=== PATIENT | female | born 2000 | race African-American/Black ===

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

== ENCOUNTER 2019-02-25 13:36 | Emergency (ER) | payer MEDICAID, SELFPAY ==
[2019-02-25] VITALS (10 sets, daily range): BP systolic 108–110; BP diastolic 64–81; PULSE 76–81; RESP 14–16; TEMP 37.6; O2SAT 16–99; BMI 18.1; BMI 18.7
[2019-02-25 14:42] LABS: Absolute Neutrophil Count 5.6 X10^3/uL (2.0-7.7); Basophil# 0.02 X10^3/uL; Basophil% 0.2 % (0-1); Eosinophil# 0.01 X10^3/uL; Eosinophils% 0.1 % (0-5); Hematocrit 43.9 % (37-47); Lymphocyte % 27.6 % (19-41); Mean Corp Hgb Conc 34.2 g/dL (32-36); Mean Corpuscular Volume 96.5 fL (81-99); Mean Platelet Vol. 9.5 fl (6.2-12.0); Monocyte% 4.8 % (0-10); NRBC Flagged by Analyzer 0 % (0-5); Neutrophil # 5.58 X10^3/uL (2.7-7.7); Neutrophil % 67.2 % (47-70); Platelet Count 214 K/mm3 (150-450); RBC Distribution Width CV 11.3 % (11.6-14.6); RBC Distribution Width SD 40.2 fl (35.1-43.9); Red Blood Count 4.55 M/mm3 (4.2-5.4); White Blood Count 8.3 K/mm3 (4.4-11.0)
--- NOTE | 2019-02-25 14:42 | ED.VISSUMM ---
- ER Visit Summary Date of Service: 02/25/19 Chief Complaint: Suicidal ideation History of Present Illness: The patient is a 18 F with suicidal ideation. History is limited, as she will not speak to me very much. She denies any plan or attempt. She denies any history of suicidal attempts or ideation. She is not on medication. Denies any medical history or complaints. Physical Examination: Afebrile and vital signs are unremarkable. Alert. Depressed mood and flat affect. Head and neck atraumatic. Heart regular. No respiratory distress. Moves all extremities. Normal gait. Test Results: Labs?CBC, CMP, hCG, tox, alcohol pending Emergency Department Course and Treatment: Patient had suicide precautions. [place] slip completed by me. Pending an unremarkable work-up, the patient is medically cleared for transfer and admission at a psychiatric facility. Treatment Plan: As above Disposition: Pending crisis evaluation Impression: 1. Suicidal ideation This note was generated with [employer] dictation software. It may contain incorrect words, spelling, and punctuation that were not noted in review of the chart prior to signing ED Disposition - Plan for ED Patient: Referrals: Dontae Worthington MD [Primary Care Provider] -
[2019-02-25 15:00] LABS: Albumin, Serum 4.6 g/dL (3.2-5.0); BUN 9 mg/dL (7-18); BUN/Creat Ratio 11.5 RATIO (10-20); Creatinine, Serum 0.78 mg/dL (0.55-1.02); EST Glomerular Filtration Rate 100 mL/min (>60); Est Glom Filt Rate - Afr Amer 121 mL/min (>60); Globulin 3.5 g/dL (2.2-4.2); Glucose 70 mg/dL (74-106); Protein, Total 8.1 g/dL (6.4-8.2)
[2019-02-25 15:01] LABS: ALB/GLOB Ratio 1.3 RATIO (0.9-2.4); AST(SGOT) 15 U/L (15-37); Alanine Aminotransfer ALT/SGPT 14 U/L (13-56); Alkaline Phosphatase 56 U/L (45-117); Anion Gap 8 (5-15); Calcium,Total 9.2 mg/dL (8.5-10.1); Chloride 109 mmol/L (98-107); Potassium 3.4 mmol/L (3.5-5.1); Sodium Level 141 mmol/L (136-145)
[2019-02-25 15:02] LABS: Amphetamine Urine VISTA NEGATIVE (<1000 ng/mL); Barbiturate Urine VISTA NEGATIVE (< 200 ng/mL); Benzodiazepine Urine VISTA NEGATIVE (< 200 ng/mL); Cocaine Urine VISTA NEGATIVE (< 300 ng/mL); Ecstacy Urine VISTA NEGATIVE (< 500 ng/mL); Methadone Urine VISTA NEGATIVE (< 300 ng/mL); PCP Urine VISTA NEGATIVE (< 25 ng/mL); THC Urine VISTA POSITIVE (< 50 ng/mL); Vista UDS pH Range 6
[2019-02-25 15:29] LABS: Internal QC Validated? YES +Cl - CLEAR BKGD; Pregnancy, Serum, hCG Quali. NEGATIVE Negative
--- NOTE | 2019-02-25 16:08 | ED.RN ---
TALKED TO [facility]. RUSSELL WILL BE OVER AFTER 5:00 PM
[2019-02-25] MEDS: MELATONIN 3 MG TABLET PO (21:24)
--- NOTE | 2019-02-25 21:24 | ED.RN ---
PT HAS EATEN FRESH FRUIT AND MANDARIN ORANGES, DRANK WATER AND COOLED TEA.
[2019-02-26] VITALS (12 sets, daily range): BP systolic 98–99; BP diastolic 75–78; PULSE 59–68; RESP 12–17; O2SAT 98–100
[2019-02-26] MEDS: Acetaminophen 325 MG Tablet 650 MG PO (12:16)
--- NOTE | 2019-02-26 12:46 | ED.RN ---
PER CRISIS; PT WAS DECLINED AT [facility] IS REQUESTING AN UA, EKG, AND AN UPDATED GLUCOSE LEVEL
--- NOTE | 2019-02-26 12:51 | EKG12_ITS ---
Test Reason : SUICIDAL Blood Pressure : / mmHG Vent. Rate : 059 BPM Atrial Rate : 059 BPM P-R Int : 096 ms QRS Dur : 076 ms QT Int : 430 ms P-R-T Axes : 065 078 071 degrees QTc Int : 425 ms Sinus bradycardia with short SC Otherwise normal ECG Confirmed by ALEXANDRA TRENT, NELIA ([id number]), editorial specialist THOMAS MCINTYRE ([id number]) on 03/04/2019 10:55:56 AM Referred By: Abi Benjamin Confirmed By:KWESI MORRIS MD
[2019-02-26 12:55] LABS: Bedside Glucose 82 mg/dL (70-110)
[2019-02-26 13:34] LABS: Mucous, Urine 0 SEEN /hpf (<or=2+)
[2019-02-26 13:42] LABS: Color, Urine Yellow (Yellow); Glucose, Dipstick Normal (Normal); Ketone-Dipstick 5 mg/dl (Negative); Leukocyte Esterase-Dipstick Negative /ul (Negative); Nitrite-Dipstick Negative (Negative); Occult Blood-Urine Negative /ul (Negative); Protein-Dipstick Negative (Negative); Urine Bilirubin Dipstick Negative (Negative); Urine Clarity Sl. Cloudy (Clear); Urine Urobilinogen Normal (Normal)
[2019-02-26 13:59] LABS: Bacteria RARE /hpf (None Seen); Red Blood Cells-Urine 0-5 SEEN /hpf (0-5); Squamous Epithelial Cells - UA 5-10 SEEN /hpf (5-10); White Blood Cells 0-5 SEEN /hpf (0-5)
--- NOTE | 2019-02-26 14:18 | ED.RN ---
FAXED UA, EKG AND GLUCOSE LEVEL TO [facility]
== END 2019-02-26 17:21 ==
PROVIDERS: Emergency Medicine; Emergency Provider Emergency Medicine; Family Provider Pediatrics; PCP Pediatrics
DX: R45.851 Suicidal ideations (principal); Z72.0 Tobacco use; A64 Unspecified sexually transmitted disease; R30.0 Dysuria
CPT/HCPCS: 80053; 80307; 80320; 84703; 85025; G0480

== ENCOUNTER → 2019-02-25 16:23 | Outpatient (CLI) | payer MEDICAID, SELFPAY ==
[2019-02-25 13:37] VITALS: BMI 18.7
[2019-02-25 19:15] LABS: Chlamydia Trachomatis by PCR Negative (Negative); Neisserai gonorrhoeae by PCR Negative (Negative); Probe Check PASS; Sample Adequacy Control PASS; Specimen Processing Control PASS
== END ==
PROVIDERS: Family Provider Pediatrics; PCP Pediatrics; Referring Provider Nurse Practitioner Women's Health; Visit Provider Nurse Practitioner Women's Health
DX: A64 Unspecified sexually transmitted disease (principal); R30.0 Dysuria
CPT/HCPCS: 80053; 80307; 80320; 81001; 82962; 84703; 85025; 87086; 87088; 87491; 87591; 93005; 99285; G0480

== ENCOUNTER → 2019-08-20 13:50 | Outpatient (CLI) | payer MEDICAID, SELFPAY ==
[2019-02-25 13:37] VITALS: BMI 18.7
[2019-08-20 14:45] LABS: hCG Titer Quant., Serum < 1 mIU/mL (1-3)
== END ==
PROVIDERS: PCP Pediatrics; Referring Provider Obstetrics & Gynecology; Visit Provider Obstetrics & Gynecology
DX: N91.2 Amenorrhea, unspecified (principal)
CPT/HCPCS: 36415; 84702

== ENCOUNTER → 2019-08-25 11:52 | Outpatient (CLI) | payer MEDICAID, SELFPAY ==
[2019-02-25 13:37] VITALS: BMI 18.7
--- NOTE | 2019-08-25 11:54 | US_ITS ---
STUDY: ULTRASOUND OF THE FEMALE PELVIS - COMPLETE REASON FOR EXAM: Female, 19 years old. PELVIC PAIN ABNORMAL BLEEDING UNKNOW LMP BEEN A WHILE PER PT LMP: Unknown. TECHNIQUE: Transabdominal and Transvaginal TECHNICAL QUALITY: Adequate. COMPARISON: None. FINDINGS: The uterus is anteverted and is in a midline position. The uterus measures 7.5 cm x 3.9 cm x 3.4 cm. Normal uterine cervix. The endometrium measures 7.3 mm in thickness, and is heterogeneous (striated). There is no demonstrated endometrial mass. There is no demonstrated myometrial mass. I.U.D. - The patient does not have an I.U.D. The right ovary is visualized. The right ovary measures 3.7 cm x 2.5 cm x 2.0 cm. There is no right ovarian cyst or ovarian mass. There is no visualized right adnexal mass or complex lesion. There is normal arterial and normal venous vascularity. The left ovary is visualized. The left ovary measures 3.8 cm x 3 cm x 1.7 cm. There is no left ovarian cyst or ovarian mass. There is no visualized left adnexal mass or complex lesion. There is normal arterial and normal venous vascularity. There is minimal fluid in the cul-de-sac. The pre void volume of the bladder was 366 ml. Polycystic ovary disease: No. US/Pelvic (Non ) IMPRESSION: Normal female pelvis. Electronically Signed: Mat Morris, at 14:32 EDT , Service support ,
--- NOTE | 2019-08-25 11:54 | US_ITS ---
STUDY: ULTRASOUND OF THE FEMALE PELVIS - COMPLETE REASON FOR EXAM: Female, 19 years old. PELVIC PAIN ABNORMAL BLEEDING UNKNOW LMP BEEN A WHILE PER PT LMP: Unknown. TECHNIQUE: Transabdominal and Transvaginal TECHNICAL QUALITY: Adequate. COMPARISON: None. FINDINGS: The uterus is anteverted and is in a midline position. The uterus measures 7.5 cm x 3.9 cm x 3.4 cm. Normal uterine cervix. The endometrium measures 7.3 mm in thickness, and is heterogeneous (striated). There is no demonstrated endometrial mass. There is no demonstrated myometrial mass. I.U.D. - The patient does not have an I.U.D. The right ovary is visualized. The right ovary measures 3.7 cm x 2.5 cm x 2.0 cm. There is no right ovarian cyst or ovarian mass. There is no visualized right adnexal mass or complex lesion. There is normal arterial and normal venous vascularity. The left ovary is visualized. The left ovary measures 3.8 cm x 3 cm x 1.7 cm. There is no left ovarian cyst or ovarian mass. There is no visualized left adnexal mass or complex lesion. There is normal arterial and normal venous vascularity. There is minimal fluid in the cul-de-sac. The pre void volume of the bladder was 366 ml. Polycystic ovary disease: No. US/Transvaginal Non- IMPRESSION: Normal female pelvis. Electronically Signed: Mat Morris, at 14:32 EDT , Service support ,
== END ==
PROVIDERS: PCP Pediatrics; Referring Provider Nurse Practitioner Women's Health; Visit Provider Nurse Practitioner Women's Health
DX: R10.2 Pelvic and perineal pain (principal)
CPT/HCPCS: 76830; 76856

== ENCOUNTER → 2020-06-15 16:38 | Outpatient (CLI) | payer MEDICAID, SELFPAY ==
[2020-06-15 14:36] VITALS: BMI 18.2
[2020-06-18 03:07] LABS: Chlamydia By Nucleic Acid AMP Negative (Negative)
[2020-06-18 08:55] LABS: Gonococcus By Nucleic Acid AMP Negative (Negative)
[2020-06-22 20:16] LABS: HPV APTIMA, High Risk Negative (Negative); HPV Reflexed? YES, CHARGE PATIENT
== END ==
PROVIDERS: PCP Pediatrics; Referring Provider Obstetrics & Gynecology; Visit Provider Obstetrics & Gynecology
DX: N93.0 Postcoital and contact bleeding (principal)
CPT/HCPCS: 87491; 87591; 87624; 88175; G0145

== ENCOUNTER → 2020-06-22 13:08 | Outpatient (CLI) | payer MEDICAID, SELFPAY ==
--- NOTE | 2020-06-22 13:12 | US_ITS ---
STUDY: ULTRASOUND OF THE FEMALE PELVIS - COMPLETE REASON FOR EXAM: Female, 20 years old. IRREGULAR MENSES -- LMP UNKNOWN LMP: TECHNIQUE: Transabdominal and Transvaginal TECHNICAL QUALITY: Adequate. COMPARISON: Comparison is made with prior examination dated 08/25/2019. FINDINGS: The uterus is anteverted and is in a midline position. The uterus measures 7.7 cm x 4.1 cm x 3.9 cm. There is a Nabothian cyst of the cervix. The endometrium measures 7 mm in thickness, and is hyperechoic. There is no demonstrated endometrial mass. There is no demonstrated myometrial mass. I.U.D. - The patient does not have an I.U.D. The right ovary is visualized. The right ovary measures 3.7 cm x 4 cm x 1.9 cm. There is no right ovarian cyst or ovarian mass. There is no visualized right adnexal mass or complex lesion. There is normal arterial and normal venous vascularity. The left ovary is visualized. The left ovary measures 3.9 cm x 3.5 cm x 1.9 cm. There is no left ovarian cyst or ovarian mass. There is no visualized left adnexal mass or complex lesion. There is normal arterial and normal venous vascularity. There is minimal fluid in the cul-de-sac. The pre void volume of the bladder was 346 ml. US/Pelvic (Non ) IMPRESSION: Normal female pelvis. Minimal amount of free fluid in the cul-de-sac. Electronically Signed: Mat Morris MD at 14:36 EST , Service support ,
--- NOTE | 2020-06-22 13:12 | US_ITS ---
STUDY: ULTRASOUND OF THE FEMALE PELVIS - COMPLETE REASON FOR EXAM: Female, 20 years old. IRREGULAR MENSES -- LMP UNKNOWN LMP: TECHNIQUE: Transabdominal and Transvaginal TECHNICAL QUALITY: Adequate. COMPARISON: Comparison is made with prior examination dated 08/25/2019. FINDINGS: The uterus is anteverted and is in a midline position. The uterus measures 7.7 cm x 4.1 cm x 3.9 cm. There is a Nabothian cyst of the cervix. The endometrium measures 7 mm in thickness, and is hyperechoic. There is no demonstrated endometrial mass. There is no demonstrated myometrial mass. I.U.D. - The patient does not have an I.U.D. The right ovary is visualized. The right ovary measures 3.7 cm x 4 cm x 1.9 cm. There is no right ovarian cyst or ovarian mass. There is no visualized right adnexal mass or complex lesion. There is normal arterial and normal venous vascularity. The left ovary is visualized. The left ovary measures 3.9 cm x 3.5 cm x 1.9 cm. There is no left ovarian cyst or ovarian mass. There is no visualized left adnexal mass or complex lesion. There is normal arterial and normal venous vascularity. There is minimal fluid in the cul-de-sac. The pre void volume of the bladder was 346 ml. US/Transvaginal Non- IMPRESSION: Normal female pelvis. Minimal amount of free fluid in the cul-de-sac. Electronically Signed: Mat Morris MD at 14:36 EST , Service support ,
== END ==
PROVIDERS: Referring Provider Obstetrics & Gynecology; Visit Provider Obstetrics & Gynecology
DX: N92.6 Irregular menstruation, unspecified (principal)
CPT/HCPCS: 76830; 76856